=== PATIENT | female | born 1975 | race Caucasian/White ===

== ENCOUNTER → 2020-07-04 15:03 | Outpatient (CLI) | payer OTHER, SELFPAY ==
--- NOTE | ~2020-07-04 | MM_ITS ---
EXAMINATION: MM screening [facility] BI w radha HISTORY: Screening TECHNIQUE: Craniocaudal and mediolateral oblique 3-D tomosynthesis images were obtained and synthetic 2-D images were generated. CAD analysis was submitted and interpreted. COMPARISON: 06/12/2019 BREAST PARENCHYMAL COMPOSITION: The breasts are heterogeneously dense, which may obscure small masses . FINDINGS: There is no evidence of suspicious mass, calcification, or architectural distortion to sugg est malignancy in either breast. There has been no suspicious interval change. IMPRESSION: 1. No mammographic evidence of malignancy. 2. Recommend routine screening mammography in one year. BI-RADS Category 1: Negative Reviewed, dictated and finalized at location A. EDGER
== END ==
PROVIDERS: Visit Provider Obstetrics & Gynecology
DX: Z12.31 Encounter for screening mammogram for malignant neoplasm of breast (principal)
CPT/HCPCS: 77063; 77067

== ENCOUNTER → 2021-06-11 12:42 | Outpatient (CLI) | payer OTHER, SELFPAY ==
--- NOTE | ~2021-06-11 | US_ITS ---
EXAMINATION: US transvaginal DATE: 06/11/2021 13:07 INDICATION: Abnormal uterine bleeding. TECHNIQUE: Multiple transvaginal sonographic images of the pelvis were obtained. COMPARISON: CT abdomen and pelvis 01/18/2011 FINDINGS: The uterus measures 8.7 x 4.1 x 5.4 cm. There is no free fluid in the pelvis. The endometrial complex measures 6 mm in thickness. There are nabothian cysts in the cervix. The right ovary measures 1.9 x 1.0 x 2.0 cm. The left ovary measures 1.8 x 1.5 x 2.1 cm. There is normal vascular flow in the ovarie s. IMPRESSION: 1. No etiology for abnormal uterine bleeding. Reviewed, dictated and finalized at location A.
== END ==
PROVIDERS: Visit Provider Obstetrics & Gynecology
DX: N93.8 Other specified abnormal uterine and vaginal bleeding (principal)
CPT/HCPCS: 76830

== ENCOUNTER 2021-07-15 00:17 | Day surgery (SDC) | payer OTHER, SELFPAY ==
[2021-07-10 11:22] VITALS: BMI 26.4
--- NOTE | 2021-07-10 11:24 | PC.NURSE ---
Report to the Outpatient Waiting Room, entrance under the green pavilion located off [facility], at time 1300 on date 07/15/21. OR Time: 1500. - You and your visitor will be asked a series of questions to screen for COVID 19 for your protection. - A mask is required within the hospital. - Only one visitor is allowed at this time. Patient visitors will be guided where to wait when not with patient. Preoperative COVID Testing Requirements: No COVID Test needed if: (proof is required; if not received patient will have Rapid Test prior to entry) - Patient has received COVID Vaccine at least 14 days prior to procedure date or - Patient has positive COVID test result within last 90 days of surgery date. COVID Test needed if above criteria is not met If not COVID vaccinated a COVID test must be conducted within 72 hours of surgery and patient is asked to isolate self from time of testing until procedure. You will go to the [facility] for your COVID testing. The [facility] site is located at the corner of [address] [facility]. You will only be called if COVID results are positive and your surgeon may reschedule your elective surgery date. Patients may have clear liquids (water, carbonated beverages, clear teas, apple juice) until 3 hours prior to surgery with a maximum of 20 ounces. - No food from midnight until time of surgery - Infants may have breast milk until 4 hours before surgery, infant formula 6 hours prior to surgery. - Children will be allowed to drink immediately following surgery. If applicable, please bring a bottle or sippy cup to assist with drinking. Juice, water, soda, and popsicles are readily available. For infants on formula, please bring formula the day of surgery. Pacifiers are allowed. Take the following medications with a SIP of water the morning of surgery: SYNTHROID, WELLBUTRIN Medications to discontinue per physician: VITAMINS/SUPPLEMENTS Date to take last dose: 07/11/21 Please no make-up, nail greenlandic, hairspray, perfume, deodorant, or body powder the day of surgery. No jewelry (including any body piercings) or valuables the day of surgery, leave them at home. Please take a shower or bath the night before, or the morning of, surgery with an antibacterial soap. Wear comfortable, loose fitting clothing. Children are encouraged to wear pajamas. - Jewelry must be removed prior to entering the operating room. Rings and piercings that are not removed may be cut off. - The hospital will not accept responsibility for valuables. - Please leave all valuables, including medications, at home the day of surgery. If you are going home after surgery, a licensed straddle truck driver must drive you home. - NO public transportation without another adult. - We recommend that an adult stay with you for 24 hours following discharge. - We also recommend that you do not drive, make important decision, drink alcoholic beverages, or take any drugs that were not prescribed by your health care provider for at least 24 hours after your discharge time. For Pediatric surgeries, we recommend two adults accompany the child home (only one inside the building at this time). Follow any additional instructions given to you from your surgeon. Telephone instructions given to CASEY NARANJO and asked if any additional questions and then verbalized understanding. Patient advised to call surgeon office or pre surgery nurse liaison [phone] if any additional questions.
[2021-07-15] MEDS: ACETAMINOPHEN 500 MG TABLET 1000 MG PO (13:17)
[2021-07-15] MEDS: LACTATED RINGERS 1,000 ML 30 ML IV CONT (13:47)
[2021-07-15 13:51] VITALS: BP 114/67; PULSE 51; RESP 16; TEMP 36.8; O2SAT 98
--- NOTE | 2021-07-15 13:53 | P.PNAN_ITS ---
Anes - Initial Pre Proc Eval Procedure: Operation Date: 07/15/21 15:00 Proposed Procedures p Hysteroscopy Dilation and Curettage - Don Santiago MD Date/Time: 07/15/21 13:53 Surgeon: Don Santiago MD Pre Op Diagnosis: abnormal uterine bleeding Patient Data Age: 46 Gender: F Height: 1.8 m Weight: 88 kg Last Vital Signs Temp 98.3 F 07/15/21 13:51 Pulse 51 L 07/15/21 13:51 Resp 16 07/15/21 13:51 BP 114/67 07/15/21 13:51 Pulse Ox 98 07/15/21 13:51 Allergies Allergy/AdvReac Type Severity Reaction Status Date / Time nitrofurantoin Allergy Severe Anaphylaxis Verified 07/15/21 13:13 Sulfa (Sulfonamide Allergy Mild swelling & Verified 07/15/21 13:13 Antibiotics) rash Home Medications Medication Instructions Recorded Confirmed Type bupropion HCl [Wellbutrin XL] 300 mg PO DAILY 07/10/21 07/15/21 History cetirizine [Zyrtec] 10 mg PO HS 07/10/21 07/15/21 History cholecalciferol (vitamin D3) 125 mcg PO DAILY 07/10/21 07/15/21 History [Vitamin D3] lactobacillus comb no.10 20,000 mmu cells PO DAILY 07/10/21 07/15/21 History [Probiotic] levothyroxine [Synthroid] 150 mcg PO DAILY 07/10/21 07/15/21 History multivitamin 1 tablet PO DAILY 07/10/21 07/15/21 History sertraline [Zoloft] 50 mg PO HS 07/10/21 07/15/21 History Patient hx anesthesia problems: none Family hx anesthesia problems: none Results Review: All pre-operative results and documents have been reviewed as part of the pre-operative evaluation. [facility] Past Medical History Medical History (Updated 07/15/21 @ 13:51 by Frank Castro MD) Hypothyroid Social History Social History Years smoked: 10 Smoking status: Former smoker Smoking end date: 08/29/04 Alcohol intake: current Drinks per week: 2 Substance use: never Substance use type: does not use Living arrangements: with family Spiritual care concerns: No Anes - Eval Final PreProcedure Day of Procedure 07/15/21 13:53 Patient weight: normal Heart: regular rate and rhythm Lungs: clear to auscultation Airway: Mallampati scale class II Neurological: alert and oriented Last oral intake: >/= 8 hours ASA classification: II Emergent: no Anesthetic plan: proceed Anesthesia type and monitoring: general GIVS and standard monitoring Results Review: All pre-operative results and documents have been reviewed as part of the pre-operative evaluation. Informed Consent: The patient's anesthetic plan and its attendant risks and benefits were discussed with the patient/family/POA. Questions were solicited and answers provided to the satisfaction of the patient/family/POA.
--- NOTE | 2021-07-15 13:56 | SUR.PREOP ---
Discussed delay with patient and . Voices understanding.
--- NOTE | 2021-07-15 14:44 | PM.HPGS ---
History of Present Illness History of Present Illness Consent: Risks, benefits, and alternatives have been discussed and questions answered. Patient agrees to proceed with procedure. Chief complaint: abnormal uterine bleeding Narrative: Glenis Diamond is a 46 year old female with history of abnormal uterine bleeding for last 3 months Review of Systems Review of Systems: All systems reviewed & are unremarkable except as noted in HPI and below PMFSH Past Medical History Medical History (Updated 07/15/21 @ 14:49 by Don Santiago MD) Abnormal uterine bleeding (AUB) Anxiety History of DVT of lower extremity Hypothyroid Hypothyroid Social History Social History Years smoked: 10 Smoking status: Former smoker Smoking end date: 08/29/04 Alcohol intake: current Drinks per week: 2 Substance use: never Substance use type: does not use Living arrangements: with family Spiritual care concerns: No Meds Home Medications and Allergies Home Medications Medication Instructions Recorded Confirmed Type bupropion HCl [Wellbutrin XL] 300 mg PO DAILY 07/10/21 07/15/21 History cetirizine [Zyrtec] 10 mg PO HS 07/10/21 07/15/21 History cholecalciferol (vitamin D3) 125 mcg PO DAILY 07/10/21 07/15/21 History [Vitamin D3] lactobacillus comb no.10 20,000 mmu cells PO DAILY 07/10/21 07/15/21 History [Probiotic] levothyroxine [Synthroid] 150 mcg PO DAILY 07/10/21 07/15/21 History multivitamin 1 tablet PO DAILY 07/10/21 07/15/21 History sertraline [Zoloft] 50 mg PO HS 07/10/21 07/15/21 History Allergies Allergy/AdvReac Type Severity Reaction Status Date / Time nitrofurantoin Allergy Severe Anaphylaxis Verified 07/15/21 13:13 Sulfa (Sulfonamide Allergy Mild swelling & Verified 07/15/21 13:13 Antibiotics) rash Vital Signs Vital Signs - 24 hr 07/15/21 13:51 Temperature 36.8 C Pulse Rate 51 L Respiratory Rate 16 Blood Pressure 114/67 Pulse Oximetry 98 Exam Resp: Effort & Inspection: normal respiratory effort Auscultation: clear to auscultation bilaterally Cardio: Rate: regular rate Rhythm: regular rhythm GI: Auscultation: normal bowel sounds : External Female Exam: normal external appearance Bimanual exam- vagina & uterus: normal bimanual exam Assessment and Plan Assessment and plan (1) Abnormal uterine bleeding (AUB): Code(s): N93.9 - Abnormal uterine and vaginal bleeding, unspecified Status: Acute Assessment and Plan: scheduled for hysteroscopy dilation and curettage. Risk and benefits reviewed with patient.
--- NOTE | 2021-07-15 15:16 | WPDHPUPDATE1 ---
History and Physical Update Update Date/Time: 07/15/21 15:16 History and Physical has been reviewed, including an updated exam of the patient. There are NO changes in the patient's condition. Risks, benefits, and alternatives have been discussed and questions answered. Patient agrees to proceed with procedure.
--- NOTE | 2021-07-15 15:48 | W.PM.PROC2 ---
Procedure Note - Detailed Date of Procedure 07/16/21 Pre-op Diagnosis abnormal uterine bleeding Post-op Diagnosis same Procedure Performed hysteroscopy dilation and curettage Surgeon Don Santiago MD Anesthesia MAC and local Findings bilateral ostia Description of Procedure Patient was taken to the operating room with IV running. she was prepared and draped in a normal sterile fashion and placed in lithotomy position. a bivalve speculum was placed in vagina. anterior lip of cervix grasped with tenaculum and cervix injected with 1 % lidocaine bilaterally 5 cc at the 2 and 10 oclock position. Cervix was dilated to an 8 and uterus sound to 9 cm. Hysteroscope introduced showed normal cavity. scope was removed and a sharp curettage was performed in all four quadrants and endometrial tissue sent for biopsy. Instruments were removed and hemostasis assured. patient taken to recovery. Estimated Blood Loss 10 Drains No Packing No Pathology yes Complications None Condition stable Disposition PACU
[2021-07-15] MEDS: KETOROLAC 30 MG/ML VIAL (*BKC) IV PUSH (15:51)
[2021-07-15 15:53] VITALS: BP 119/68; PULSE 54; RESP 14; O2SAT 97
[2021-07-15 16:10] VITALS: BP 110/71; PULSE 54; RESP 16
[2021-07-15 16:25] VITALS: BP 111/67; PULSE 53; RESP 14; O2SAT 99
[2021-07-15 16:40] VITALS: BP 112/67; PULSE 55; RESP 14
== END 2021-07-15 16:45 | disposition home or self-care (01) ==
PROVIDERS: PCP Internal Medicine; Visit Provider Obstetrics & Gynecology
PROC: 0U5B8ZZ Destruction of Endometrium, Via Natural or Artificial Opening Endoscopic (ICD-10-PCS; CPT 58563; principal; 2021-07-15 15:00)
DX: N93.9 Abnormal uterine and vaginal bleeding, unspecified (principal); E03.9 Hypothyroidism, unspecified; F41.9 Anxiety disorder, unspecified; Z87.891 Personal history of nicotine dependence
CPT/HCPCS: 58558; 88305; A9270; J1885; J2250; J2704; J3010; J7030; J7120

== ENCOUNTER → 2021-09-09 13:30 | Outpatient (CLI) | payer OTHER, SELFPAY ==
--- NOTE | ~2021-09-09 | MM_ITS ---
EXAMINATION: MM screening [facility] BI w radha HISTORY: Screening TECHNIQUE: Craniocaudal and mediolateral oblique 3-D tomosynthesis images were obtained and synthetic 2-D images were generated. CAD analysis was submitted and interpreted. COMPARISON: Comparison to multiple prior studies sequentially, with oldest reviewed study dated 05/29. BREAST PARENCHYMAL COMPOSITION: There are scattered areas of fibroglandular density. FINDINGS: There is no evidence of suspicious mass, calcification, or architectural distortion to sugg est malignancy in either breast. There has been no suspicious interval change. IMPRESSION: 1. No mammographic evidence of malignancy. 2. Recommend routine screening mammography in one year. BI-RADS Category 1: Negative Reviewed, dictated and finalized at location A. N WHEEL ASSEMBLER
== END ==
PROVIDERS: Visit Provider Obstetrics & Gynecology Gynecology
DX: Z12.31 Encounter for screening mammogram for malignant neoplasm of breast (principal)
CPT/HCPCS: 77063; 77067

== ENCOUNTER → 2022-08-31 13:36 | Outpatient (CLI) | payer OTHER, SELFPAY ==
--- NOTE | ~2022-08-31 | MR_ITS ---
EXAMINATION: MR knee LT wo con DATE: 08/31/2022 14:08 INDICATION: Chronic posterior and lateral left knee pain after a soccer injury. TECHNIQUE: Magnetic resonance imaging (MRI) of the left knee was performed without intravenous contra st. Sequences included axial PD-weighted FS FSE, coronal PD-weighted FSE and PD-weighted FS FSE, sagi ttal PD-weighted FSE, and sagittal T2-weighted FS FSE. COMPARISON: None. FINDINGS: Medial compartment: Meniscus intact. Mild diffuse thinning of cartilage. Mild osteophytosis Lateral compartment: Meniscus intact. Mild diffuse thinning of cartilage. Mild osteophytosis Patellofemoral compartment: Moderate cartilage thinning and irregularity over the median ridge, with subchondral cysts. Retinacul a intact. Ligaments and tendons: The ACL, PCL, MCL, and LCL are intact. Remaining flexor and extensor tendons are intact. Fluid: Small volume joint fluid. Osseous/other: No suspicious focal or diffuse marrow signal. Edematous suprapatellar fat. IMPRESSION: 1. No internal derangement. 2. Mild tricompartmental left knee osteoarthritis. 3. Edematous suprapatellar fat may reflect a degree of impingement in the appropriate conical context . 4. Small left knee joint effusion. Reviewed, dictated and finalized at location K. OR OPERATIONS ANALYST IMPRESSION: 1. No internal derangement. 2. Mild tricompartmental left knee osteoarthritis. 3. Edematous suprapatellar fat may reflect a degree of impingement in the appro priate conical context. 4. Small left knee joint effusion.
== END ==
PROVIDERS: PCP Internal Medicine; Visit Provider Orthopaedic Surgery
DX: M17.12 Unilateral primary osteoarthritis, left knee (principal); M25.462 Effusion, left knee
CPT/HCPCS: 73721

== ENCOUNTER → 2022-11-22 13:39 | Outpatient (CLI) | payer OTHER, SELFPAY ==
--- NOTE | ~2022-11-22 | MM_ITS ---
EXAMINATION: MM screening [facility] BI w radha HISTORY: Screening TECHNIQUE: Craniocaudal and mediolateral oblique 3-D tomosynthesis images were obtained and synthetic 2-D images were generated. CAD analysis was submitted and interpreted. COMPARISON: Comparison to multiple prior studies sequentially, with oldest reviewed study dated 05/29. BREAST PARENCHYMAL COMPOSITION: The breasts are heterogeneously dense, which may obscure small masses . FINDINGS: There is no evidence of suspicious mass, calcification, or architectural distortion to sugg est malignancy in either breast. There has been no suspicious interval change. IMPRESSION: 1. No mammographic evidence of malignancy. 2. Recommend routine screening mammography in one year. BI-RADS Category 1: Negative Reviewed, dictated and finalized at location A.
== END ==
PROVIDERS: PCP Internal Medicine; Visit Provider Obstetrics & Gynecology Gynecology
DX: Z12.31 Encounter for screening mammogram for malignant neoplasm of breast (principal)
CPT/HCPCS: 77063; 77067

== ENCOUNTER 2024-06-01 13:25 | Outpatient (CLI) | payer OTHER, SELFPAY ==
--- NOTE | ~2024-06-01 | MM_ITS ---
EXAMINATION: MM screening [facility] BI w radha HISTORY: Screening TECHNIQUE: Craniocaudal and mediolateral oblique 3-D tomosynthesis images were obtained and synthetic 2-D images were generated. CAD analysis was submitted and interpreted. COMPARISON: Comparison to multiple prior studies sequentially, with oldest reviewed study dated 05/29. BREAST PARENCHYMAL COMPOSITION: Not dense: There are scattered areas of fibroglandular density. FINDINGS: There is no evidence of suspicious mass, calcification, or architectural distortion to sugg est malignancy in either breast. There has been no suspicious interval change. IMPRESSION: 1. No mammographic evidence of malignancy. 2. Recommend routine screening mammography in one year. BI-RADS Category 1: Negative Reviewed, dictated and finalized at location B.
== END 2024-06-01 13:26 | disposition home or self-care (01) ==
LOC: MICIMG 13:27
PROVIDERS: PCP Internal Medicine; Visit Provider Internal Medicine
DX: Z12.31 Encounter for screening mammogram for malignant neoplasm of breast (principal)
CPT/HCPCS: 77063; 77067

== ENCOUNTER 2025-06-26 11:44 | Outpatient (CLI) | payer OTHER, SELFPAY ==
--- NOTE | ~2025-06-26 | MM_ITS ---
EXAMINATION: MM screening [facility] BI w radha HISTORY: Screening TECHNIQUE: Craniocaudal and mediolateral oblique 3-D tomosynthesis images were obtained and synthetic 2-D images were generated. CAD analysis was submitted and interpreted. COMPARISON: Comparison to multiple prior studies sequentially, with oldest reviewed study dated 06/12/2019. BREAST PARENCHYMAL COMPOSITION: Not dense: There are scattered areas of fibroglandular density. FINDINGS: There is no evidence of suspicious mass, calcification, or architectural distortion to suggest malignancy in either breast. There has been no suspicious interval change. IMPRESSION: 1. No mammographic evidence of malignancy. 2. Recommend routine screening mammography in one year. BI-RADS Category 1: Negative Reviewed, dictated and finalized at location B.
== END 2025-06-26 11:45 | disposition home or self-care (01) ==
LOC: MICIMG 11:47
PROVIDERS: Visit Provider Internal Medicine
DX: Z12.31 Encounter for screening mammogram for malignant neoplasm of breast (principal)
CPT/HCPCS: 77063; 77067